=== PATIENT | female | born 1930 | race Caucasian/White ===

== ENCOUNTER 2019-05-31 07:49 | Day surgery (SDC) | payer MEDICARE, BC ==
[2019-05-29 16:26] LABS: BASOPHILS # (AUTO) 0.1 X10'3 (0-0.2); BASOPHILS % (AUTO) 0.8 % (0-1); EOSINOPHILS # (AUTO) 0.2 X10'3 (0-0.9); EOSINOPHILS % (AUTO) 1.8 % (0-6); HEMATOCRIT 38.7 % (35.0-45.0); HEMOGLOBIN 12.8 g/dl (12.0-16.0); LYMPHOCYTES # (AUTO) 1.5 X10'3 (1.1-4.8); LYMPHOCYTES % (AUTO) 11.9 % (21-51); MEAN CORPUSCULAR HEMOGLOBIN 30.5 PG (27.0-31.0); MEAN CORPUSCULAR VOLUME 92.6 FL (78-98); MEAN PLATELET VOLUME 8.9 FL (7.4-10.4); MONOCYTES # (AUTO) 0.8 X10'3 (0-0.9); MONOCYTES % (AUTO) 6.5 % (2-12); PLATELET COUNT 235 X10'3 (140-440); RED BLOOD COUNT 4.18 X10'6 (4.20-5.60); RED CELL DISTRIBUTION WIDTH 13.6 % (11.5-14.5); WHITE BLOOD COUNT 12.7 X10'3 (4.5-11.0)
[2019-05-29 16:30] LABS: ALBUMIN 3.4 G/DL (3.4-5.0); ANION GAP 5 (8-16); BLOOD UREA NITROGEN 34 MG/DL (7-18); BUN/CREATININE RATIO 20.1 (6.6-38.0); CHLORIDE 105 MMOL/L (99-107); CREATININE 1.69 MG/DL (0.40-0.90); GLUCOSE 88 MG/DL (70-104); POTASSIUM 4.4 MMOL/L (3.5-5.1); SODIUM 143 MMOL/L (135-145); TOTAL CARBON DIOXIDE 32.7 MMOL/L (24-32); eGFR 28 ML/MIN
[2019-05-31] VITALS (13 sets, daily range): BP systolic 114–145; BP diastolic 57–91
[~2019-05-31] VITALS: Ht 175.3 cm; Wt 62.6 kg
[~2019-05-31 07:49] MED LIST: AMLO5TAB16 PO; ASPI-611 PO; CALC-1197 PO; LACT-28 PO; LACT1CAP26 PO; MULT1TAB74 PO; PREG75CA30 PO; ZOLP5TAB8 PO
[2019-05-31] MEDS ORDERED: normal saline 1000ml 1,000 ML IV SCH (08:15)
[2019-05-31] MEDS ORDERED: MIDAZolam 1mg/ml 10ml vial IV ONE (08:15)
[2019-05-31] MEDS ORDERED: LORazepam 0.5 MG tablet PO ONE (08:15)
[2019-05-31] MEDS ORDERED: amiodarone in dextrose, iso-osm 150mg/100ml bag IV ONE (08:15)
[2019-05-31] MEDS ORDERED: diphenhydrAMINE 25mg capsule PO ONE (08:15)
[2019-05-31] MEDS ORDERED: morphine 10mg/ml inj. IV ONE (08:15)
[2019-05-31] MEDS ORDERED: atropine 0.1mg/ml 10ml syringe IV ONE (08:15)
[2019-05-31] MEDS ORDERED: APIX2.5T PO (08:25)
[2019-05-31] MEDS ORDERED: DILT-88 PO (08:25)
[2019-05-31] MEDS ORDERED: AMIO200T61 PO (08:25)
[2019-05-31] MEDS ORDERED: FURO-150 PO (08:25)
== END 2019-05-31 11:20 | disposition home or self-care (01) ==
LOC: SSTAY O 07:49
PROVIDERS: ATTEND Internal Medicine Cardiovascular Disease
DX: I48.19 Other persistent atrial fibrillation (principal); I10 Essential (primary) hypertension; E78.5 Hyperlipidemia, unspecified; R55 Syncope and collapse; Z85.51 Personal history of malignant neoplasm of bladder; I34.0 Nonrheumatic mitral (valve) insufficiency; R06.02 Shortness of breath
CPT/HCPCS: 36415; 80048; 85025; 85610; 92960; 93005; J2250; J2270; J7030; Q0163